=== PATIENT | male | born 1985 | race Caucasian/White ===

== ENCOUNTER 2017-04-07 22:15 | Emergency (ER) | payer OTHER ==
[2017-04-07] MEDS ORDERED: LAMICTAL (22:39)
[2017-04-07] MEDS ORDERED: PREDNISONE20 M1 PO (22:58)
[2017-06-05] MEDS ORDERED: NO HOME MEDICATION (20:58)
[2017-06-06] MEDS ORDERED: PERCOCET 5-3251 EACH PO (14:25)
[2017-06-06] MEDS ORDERED: ULTRAM50 M1 PO (14:26)
[2017-06-06] MEDS ORDERED: PNEUMOVAX25 MCG/0.5 (14:28)
== END 2017-04-07 23:15 ==
LOC: EDMED 22:15
PROC: 0HQFXZZ Repair Right Hand Skin, External Approach (ICD-10-PCS; principal; 2017-04-07)
DX: S61.210A Laceration without foreign body of right index finger without damage to nail, initial encounter (principal); F31.9 Bipolar disorder, unspecified; Z23 Encounter for immunization; W26.0XXA Contact with knife, initial encounter; Y92.019 Unspecified place in single-family (private) house as the place of occurrence of the external cause